=== PATIENT | male | born 1955 | race Asian ===

== ENCOUNTER 2017-07-08 06:30 | Day surgery (SDC) | payer OTHER ==
[2017-07-08] MEDS ORDERED: MIDAZOLAM 1 MG/ML 2 ML INJ ×3 (08:42→08:46)
[2017-07-08] MEDS ORDERED: FENTAnyl 50 MCG/ML VIAL (08:43)
== END 2017-07-08 11:58 | disposition home or self-care (01) ==
LOC: GIL 06:30
DX: Z12.11 Encounter for screening for malignant neoplasm of colon (principal); K57.90 Diverticulosis of intestine, part unspecified, without perforation or abscess without bleeding
CPT/HCPCS: 45378; 88305